=== PATIENT | female | born 2000 | race African-American/Black ===

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

== ENCOUNTER → 2022-01-18 10:32 | Outpatient (BNVA) | payer OTHER, SELFPAY | PROVIDERS: PCP Physician Assistant; Visit Provider Advanced Practice Midwife | DX: Z30.41 Encounter for surveillance of contraceptive pills (principal) | CPT/HCPCS: 99212 ==

== ENCOUNTER 2022-08-27 09:04 | Outpatient (REF) | payer OTHER, SELFPAY ==
[2022-08-27 16:40] LABS: CT PCR NOT DETECTED (Not Detect.); NG PCR NOT DETECTED (Not Detect.)
[2022-08-28 13:56] LABS: BV Int Neg Control Negative (Negative); BV Int Pos Control Positive (Positive)
== END 2022-08-27 09:05 | disposition home or self-care (01) ==
LOC: HO.LAB 09:04
PROVIDERS: PCP Physician Assistant; Visit Provider Advanced Practice Midwife
DX: O20.9 Hemorrhage in early pregnancy, unspecified (principal); O21.9 Vomiting of pregnancy, unspecified
CPT/HCPCS: 36415; 84702; 87480; 87491; 87510; 87591; 87660; 99212

== ENCOUNTER 2022-08-28 13:44 | Outpatient (REF) | payer OTHER, SELFPAY ==
--- NOTE | ~2022-08-28 | US_ITS ---
EXAMINATION: US OBSTETRICAL ULTRASOUND CLINICAL INFORMATION: O20.9 - Hemorrhage in early , unspecified COMPARISON: Pelvic ultrasound 11/19/2021. LMP: 07/15/2022. Gestational age by maternal dates is 6 weeks 2 days. Estimated date of delivery by maternal dates is 04/21/2023. TECHNIQUE: Ultrasound of the maternal pelvis is performed using transabdominal and transvaginal transducers. Transvaginal imaging is performed due to inadequate visualization transabdominally. M-mode Doppler is also performed. FINDINGS: There is a single intrauterine gestational sac with visible yolk sac, embryo/fetus, and cardiac activity. There is no significant subchorionic hemorrhage or hematoma. HR: 135 beats per minute. CRL (crown rump length): 0.92 cm (7 weeks 0 days +/- 4 days). CLAUDIA (estimated date of delivery): 04/16/2023 +/- 4 days. MATERNAL ADNEXA: The right maternal ovary measures 3.5 x 2.3 x 2.7 cm. The left maternal ovary measures 3.1 x 2.3 x 2.5 cm. There is no significant maternal adnexal mass. No maternal pelvic ascites. US/US OB <= 14 weeks fetus IMPRESSION: 1. Single intrauterine gestation with ultrasound gestational age of 7 weeks 0 days +/- 4 days. 2. Estimated date of delivery is 04/16/2023 +/- 4 days. 3. No subchorionic hemorrhage or hematoma.
== END 2022-08-28 13:45 | disposition home or self-care (01) ==
LOC: HO.US 13:44
PROVIDERS: PCP Physician Assistant; Visit Provider Advanced Practice Midwife
DX: O20.9 Hemorrhage in early pregnancy, unspecified (principal)
CPT/HCPCS: 76801

== ENCOUNTER → 2022-08-30 14:06 | Outpatient (BNVA) | payer OTHER, SELFPAY | PROVIDERS: PCP Physician Assistant; Visit Provider Advanced Practice Midwife | DX: Z71.2 Person consulting for explanation of examination or test findings (principal); O26.891 Other specified pregnancy related conditions, first trimester; N89.8 Other specified noninflammatory disorders of vagina; Z3A.01 Less than 8 weeks gestation of pregnancy | CPT/HCPCS: 99212 ==

== ENCOUNTER → 2022-09-13 13:53 | Outpatient (BNVA) | payer OTHER, SELFPAY | PROVIDERS: PCP Physician Assistant; Visit Provider Advanced Practice Midwife | DX: Z34.01 Encounter for supervision of normal first pregnancy, first trimester (principal); Z86.59 Personal history of other mental and behavioral disorders | CPT/HCPCS: 99212 ==

== ENCOUNTER → 2022-09-27 14:26 | Outpatient (BNVA) | payer OTHER, SELFPAY | PROVIDERS: PCP Physician Assistant; Visit Provider Advanced Practice Midwife | DX: O99.611 Diseases of the digestive system complicating pregnancy, first trimester (principal); K59.01 Slow transit constipation; O21.9 Vomiting of pregnancy, unspecified; Z3A.11 11 weeks gestation of pregnancy | CPT/HCPCS: 81003; 99212 ==

== ENCOUNTER 2022-09-30 08:14 | Outpatient (REF) | payer OTHER, SELFPAY ==
[2022-09-30 09:10] LABS: Hematocrit 37.7 % (37.0-47.0); Hemoglobin 12.6 g/dl (12.0-16.0); Mean Corpuscular HGB Conc 33.4 g/dl (31.0-35.0); Mean Corpuscular Volume 86.9 fL (80.0-98.0); Platelet Count 405 X10*3/uL (160-400); Red Blood Count 4.34 X10*6/uL (4.20-5.50); Red Cell Distribution Width 11.7 % (11.0-16.0); White Blood Count 4.7 X10*3/uL (4.8-10.8)
[2022-09-30 09:32] LABS: Amphetamine Screen Urine Not Detected (Not Detect); Barbiturates, Urine Not Detected (Not Detect); Benzodiazepines Screen Urine Not Detected (Not Detect); Cannabinoid Screen Urine Not Detected (Not Detect); Cocaine Screen Urine Not Detected (Not Detect); Fentanyl, urine Not Detected (Not Detect); Opiate Screen Urine Not Detected (Not Detect); Phencyclidine Screen Urine Not Detected (Not Detect)
[2022-10-02 04:42] LABS: Syphilis Screen Nonreactive (Nonreactive)
[2022-10-02 05:50] LABS: ~HepC Num1 0.07 S/CO (0.00-0.79); ~Hepatitis C Antibody Nonreactive (Nonreactive)
[2022-10-02 06:17] LABS: HBsAGNum1 0.29 S/CO (0.00-0.99); HIV AB/AG Nonreactive (Nonreactive); HIV Num 1 0.11 S/CO (0.00-0.99); Hepatitis B Surface Antigen Negative (Negative)
[2022-10-02 07:49] LABS: Varicella IgG Antibody <135.00 index
[2022-10-11 01:04] LABS: CF Ethnicity NG; Cystic Fibrosis NEGATIVE (NEGATIVE)
== END 2022-09-30 08:15 | disposition home or self-care (01) ==
LOC: HO.LAB 08:14
PROVIDERS: Visit Provider Advanced Practice Midwife
DX: Z32.01 Encounter for pregnancy test, result positive (principal)
CPT/HCPCS: 80307; 81220; 85027; 86762; 86780; 86787; 86803; 86850; 86900; 87086; 87340; 87389

== ENCOUNTER 2022-10-23 14:20 | Outpatient (REF) | payer OTHER, SELFPAY | END 2022-10-23 14:21 | disposition home or self-care (01) | LOC: HO.LAB 14:20 | PROVIDERS: PCP Physician Assistant; Visit Provider Advanced Practice Midwife | DX: Z34.02 Encounter for supervision of normal first pregnancy, second trimester (principal); Z3A.15 15 weeks gestation of pregnancy | CPT/HCPCS: 36415; 81003; 81511; 99212 ==

== ENCOUNTER → 2022-11-29 10:27 | Outpatient (BNVA) | payer OTHER, SELFPAY | PROVIDERS: PCP Physician Assistant; Visit Provider Advanced Practice Midwife | DX: O35.EXX0 Maternal care for other (suspected) fetal abnormality and damage, fetal genitourinary anomalies, not applicable or unspecified (principal); O98.512 Other viral diseases complicating pregnancy, second trimester; U07.1 COVID-19; Z3A.20 20 weeks gestation of pregnancy | CPT/HCPCS: 81003; 99212 ==

== ENCOUNTER 2023-09-12 09:29 | Outpatient (AMB) | payer OTHER, SELFPAY ==
[2023-09-12 10:03] VITALS: BP 136/88; PULSE 83; O2SAT 99; BMI 30.5
--- NOTE | 2023-09-12 10:03 | AM.OFFWIN_ITS ---
Intake Vital Signs 09/12/23 10:03 Height 5 ft 5 in Weight 183 lb 4 oz BMI 30.5 BP 136/88 Blood Pressure Location Rt brachial Position Sitting Pulse 83 Pulse Source Pulse Oximeter Pulse Oximetry (%) 99 Oxygen Delivery Method Room Air Intake Visit Reasons: EST/high bp, nausea(lobby) Patient Tobacco Use Status: Never used Tobacco Allergies No Known Allergies Allergy (Verified 09/12/23 10:06) Medication List - Last Reviewed 09/12/23 by Rosa Valdez MA PNV,calcium 03-btdc-dputu acid 27 mg iron- 1 mg ( Vitamins Plus Low Iron) 1 tab PO DAILY Do you need a note to return to daycare/school/sports/work: No HPI EST/high bp, nausea(lobby) HPI Details Patient is 22-year-old female came in today to talk about her blood pressure Patient delivered side of this year she had preeclampsia during and was treated with high blood pressure medication Which were eventually stopped when her blood pressure became normalized. Patient says that she has been monitoring her blood pressure every now and then and she has noticed that it was elevated again She also had nausea and chest pain along with headache yesterday so she went to [facility] Patient had chest x-ray which was normal EKG I do not have the report Labs were done I reviewed those they were within normal limit electrolytes were within normal limit kidney functions intact She came in today to be treated for high blood pressure as patient left AMA from [facility] yesterday Her blood pressure is 136/88, patient says that it is running as high as 150 systolic at home We did the EKG today as patient is still having some chest discomfort EKGs within normal limit I am treating her with atenolol 25 mg. She has appointment with [facility] with new PCP in December Patient will continue to monitor her blood pressure at home. [facility] Family History Paternal Aunt Ovarian cancer Brother High cholesterol Obesity Maternal Grandmother High cholesterol Paternal Grandfather No problems noted. 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 Current occupational exposures/hazards: No Sexual orientation: Straight/Heterosexual Gender identity: Female Cognitive needs: No Hearing needs: No Vision needs: No Female Reproductive History Menstrual Age of Menarche: 12 Review of Systems Const Denies chills and Denies fever(s) ENT Denies epistaxis and Denies nasal discharge Resp Denies chest congestion, Denies cough and Denies hemoptysis GI Denies diarrhea and Denies nausea Skin/Breast Denies rash Neuro Reports no additional complaints Psych Reports no additional complaints Endo Reports no additional complaints Physical Exam Vital Signs: Last Vital Signs Pulse 83 09/12/23 10:03 BP 136/88 09/12/23 10:03 Pulse Ox 99 09/12/23 10:03 Oxygen Delivery Method Room Air 09/12/23 10:03 BMI result Body Mass Index 30.5 Const General: cooperative, comfortable and no acute distress Orientation/consciousness: patient oriented x3 HEENT Head: Yes normocephalic Eyes General: appearance normal, both eyes and all related structures Neck Other: Supple Neck: Yes supple Resp Effort & Inspection: normal respiratory effort, no cough and no stridor Cardio Rhythm: regular rhythm Heart sounds: S1 normal heart sound present and S2 normal heart sound present Skin General skin exam: turgor normal Neuro Other: Motor sensory intact General: patient oriented x3, tone normal and moves all extremities Extrem Other: No lower extremity swelling. Right lower extremity: no edema Left lower extremity: no edema Psych Other: Normal effect, speech clear Office Procedures EKG [id number], Complete Assessment & Plan Assessment & Plan (1) Chest pain: Code(s): R07.9 - Chest pain, unspecified Qualifiers: Chest pain type: precordial pain Qualified Code(s): R07.2 - Precordial pain (2) Labile hypertension: Code(s): R09.89 - Other specified symptoms and signs involving the circulatory and respiratory systems Plan Patient is 22-year-old female came in today to talk about her blood pressure Patient delivered side of this year she had preeclampsia during and was treated with high blood pressure medication Which were eventually stopped when her blood pressure became normalized. Patient says that she has been monitoring her blood pressure every now and then and she has noticed that it was elevated again She also had nausea and chest pain along with headache yesterday so she went to [facility] Patient had chest x-ray which was normal EKG I do not have the report Labs were done I reviewed those they were within normal limit electrolytes were within normal limit kidney functions intact She came in today to be treated for high blood pressure as patient left AMA from [facility] yesterday Her blood pressure is 136/88, patient says that it is running as high as 150 systolic at home We did the EKG today as patient is still having some chest discomfort EKGs within normal limit I am treating her with atenolol 25 mg. She has appointment with [facility] care with new PCP in December Patient will continue to monitor her blood pressure at home. Orders: Orders AMB EKG-In Office Today R07.9 - Chest pain, unspecified Medications: New atenolol 25 mg PO DAILY 90 tabs 0RF Coding Level of Care Code Est Pt Level 4 (23096) Diagnoses Precordial pain R07.2 Chest pain type: precordial pain Labile hypertension R09.89 CPT Codes EKG - CPT: 80170-[id number], Complete ([id number])
== END 2023-09-12 10:57 | disposition home or self-care (01) ==
PROVIDERS: PCP Internal Medicine; Visit Provider Internal Medicine
DX: R07.2 Precordial pain (principal); R09.89 Other specified symptoms and signs involving the circulatory and respiratory systems
CPT/HCPCS: 93000; 99214

== ENCOUNTER 2023-12-11 08:56 | Outpatient (AMB) | payer OTHER, SELFPAY ==
[2023-12-11 09:50] VITALS: BP 122/76; PULSE 76; O2SAT 98; BMI 30.5
--- NOTE | 2023-12-11 09:50 | MHC.OFFWIV ---
Intake Vital Signs 12/11/23 09:50 Height 5 ft 5 in Weight 183 lb 4 oz BMI 30.5 BP 122/76 Blood Pressure Location Rt brachial Position Sitting Pulse 76 Pulse Source Pulse Oximeter Pulse Oximetry (%) 98 Oxygen Delivery Method Room Air Intake Visit Reasons: EST/sore throat ([phone]) Intake Note: pt is here for c.o sore throat Patient Tobacco Use Status: Never used Tobacco Allergies No Known Allergies Allergy (Verified 12/11/23 09:50) Do you need a note to return to daycare/school/sports/work: Yes HPI EST/sore throat ([phone]) HPI Details This is a 23-year-old female patient who presents today with a 2 day history of sore throat and mild headache. She also reports some mild ear pressure. Denies any fever or chills. Denies any shortness of breath or cough. Denies any GI symptoms. Denies any known exposure to sick contacts. [facility] Family History Paternal Aunt Ovarian cancer Brother High cholesterol Obesity Maternal Grandmother High cholesterol Paternal Grandfather No problems noted. 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 Current occupational exposures/hazards: No Sexual orientation: Straight/Heterosexual Gender identity: Female Cognitive needs: No Hearing needs: No Vision needs: No Female Reproductive History Menstrual Age of Menarche: 12 Review of Systems Const All systems reviewed & are unremarkable except as noted in HPI and below Physical Exam Vital Signs: Last Vital Signs Pulse 76 12/11/23 09:50 BP 122/76 12/11/23 09:50 Pulse Ox 98 12/11/23 09:50 Oxygen Delivery Method Room Air 12/11/23 09:50 BMI result Body Mass Index 30.5 Const General: cooperative and no acute distress HEENT Head: Yes normal to inspection Ears: hearing grossly normal bilaterally, external ears normal and TM's normal bilaterally General nose exam: Normal external nose present and Normal nasal mucous membranes and turbinates present Face and sinus: Yes normal facial exam Mouth: Normal oral and palatal mucosa present Throat: Yes posterior oropharynx normal Neck Neck: Yes no lymphadenopathy Resp Effort & Inspection: normal respiratory effort and able to speak in complete sentences Auscultation: clear to auscultation bilaterally Cardio Jugular venous distension: no JVD Palpation: normal PMI Rate: regular rate Rhythm: regular rhythm Skin General skin exam: no rashes or lesions noted Extrem General: Yes capillary refill normal and Yes no clubbing, cyanosis or edema Psych Appearance: grossly normal Mental Status: mental status grossly normal Speech and movement: Normal speech and movement present Results AMB Rapid Strep AMB Rapid Strep Negative Last Edit by VAISHNAVI Acuña on 12/11/23 10:03 Results Reviewed Results Reviewed: Laboratory Last Values Strep Scn Rapid Clinic Negative 12/11/23 10:03 Assessment & Plan Assessment & Plan (1) Upper respiratory infection: Code(s): J06.9 - Acute upper respiratory infection, unspecified Qualifiers: URI type: unspecified viral URI Qualified Code(s): J06.9 - Acute upper respiratory infection, unspecified Plan: Symptoms are consistent with viral illness. Rapid strep was negative. No abnormal symptoms upon exam. COVID/flu/RSV swab was obtained and patient aware she will be notified with these results once they are available. We discussed conservative measures for symptomatic management, including rest, hydration, increase vitamin and healthy food intake, Tylenol/Motrin for any fever or discomfort. If she does not improve with time and conservative treatment, or symptoms worsen/new symptoms develop, she can return to the clinic for further evaluation. She verbalizes understanding and agrees to plan Orders: Orders AMB Rapid Strep Screen Today Z13.9 - Encounter for screening, unspecified SARS-CoV2/FLU/RSV Today J06.9 - Acute upper respiratory infection, unspecified Coding Level of Care Code Est Pt Level 3 (09174) Diagnoses Viral upper respiratory tract infection J06.9 URI type: unspecified viral URI
== END 2023-12-11 10:37 | disposition home or self-care (01) ==
PROVIDERS: PCP Internal Medicine; Visit Provider Nurse Practitioner Family
DX: J06.9 Acute upper respiratory infection, unspecified (principal); J02.9 Acute pharyngitis, unspecified
CPT/HCPCS: 87880; 99213

== ENCOUNTER 2023-12-11 10:24 | Outpatient (REF) | payer OTHER, SELFPAY ==
[2023-12-11 16:58] LABS: Influenza A PCR NEGATIVE (Negative); Influenza B PCR NEGATIVE (Negative); Resp Syncy Virus RNA Qual PCR NEGATIVE (Negative); SARS COV2 PCR INHOUSE NEGATIVE (Negative)
== END 2023-12-11 10:25 | disposition home or self-care (01) ==
LOC: HO.LAB 10:24
PROVIDERS: Visit Provider Nurse Practitioner Family
DX: J06.9 Acute upper respiratory infection, unspecified (principal)
CPT/HCPCS: 0241U

== ENCOUNTER 2024-01-07 09:57 | Outpatient (AMB) | payer OTHER, SELFPAY ==
[2024-01-07 10:42] VITALS: BP 110/68; PULSE 71; O2SAT 100; BMI 29.8
--- NOTE | 2024-01-07 10:42 | A.OFFPC_ITS ---
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 Intake Note: Pt is here today as a New Patient to [facility] care/ PE Is last menstrual period known: Yes Last menstrual period: 12/23/23 Allergies No Known Allergies Allergy (Verified 01/07/24 10:57) Medication List - Last Reconciled 01/07/24 by Tiff Shah MD atenolol 25 mg PO DAILY levonorgestrel (Liletta) intrauterine PNV,calcium [id number] acid 27 mg iron- 1 mg ( Vitamins Plus Low Iron) 1 tab PO DAILY Tobacco use date assessed: 01/07/24 Dental Screening Dental Screen Date: 01/07/24 Did you have a dental visit in the last 12 months?: Yes Did you have a dental problem in the last 6 months where you did not have access to dental care?: Yes Was dental information given to patient?: Patient has dentist 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 She has history of preeclampsia during her 1st , now with hypertension, stable and controlled on atenolol 25 mg once a day. Still currently follows with [facility], and had an IUD placed last March 2023. She had recent labs done at her OB with his CBC done 09/11/2023 showing normal findings, basic metabolic panel showed also unremarkable findings except for slightly elevated fasting glucose at 103 mg/dL. She also had a normal EKG done 09/11/2023 at [facility] . She has been complaining of intermittent episodes of lower abdominal pain, with certain foods upsetting her stomach pelvic ultrasound was ordered by her OB and was done 10/30/2023 which showed normal position of her IUD, normal uterus and ovaries and small amount of free fluid in her pelvis, likely physiologic. Still complaining of intermittent epigastric pain accompanied by occasional nausea but no vomiting, abdominal bloating, and constipation. This has been on going now for the last several months. [facility] Medical History (Updated 01/07/24 @ 11:27 by Tiff Shah MD) Chronic constipation Essential hypertension History of pre-eclampsia Surgical History (Updated 01/07/24 @ 11:23 by Tiff Shah MD) Hx of wisdom tooth extraction Family History (Updated 01/07/24 @ 11:22 by Tiff Shah MD) Paternal Aunt Ovarian cancer Substance use disorder Mental health disorder Diabetes mellitus Brother High cholesterol Obesity Maternal Grandmother High cholesterol HTN (hypertension) Paternal Grandfather CVA (cerebral vascular accident) Mother Asthma Social History Household Members: Family Housing: Apartment Are you a primary pharmacy customer care specialist to a significant other at home: No Do you presently have visiting nurse or other home services: No Alcohol intake: never Patient Tobacco Use Status: Never used Tobacco e-Cigarette/Vaping Use: Never Used Substance Use Type: Marijuana Agree to transfusion: Yes service: No Current occupational status: employed 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 1. Little interest or pleasure in doing things: not at all 2. Feeling down, depressed, or hopeless: not at all 3. Trouble falling or staying asleep, or sleeping too much: several days 4. Feeling tired or having little energy: more than half the days 5. Poor appetite or overeating: not at all 6. Feeling bad about yourself - or that you are a failure or have let yourself or your family down: not at all 7. Trouble concentrating on things, such as reading the newspaper or watching television: several days 8. Moving or speaking so slowly that other people could have noticed. Or the opposite - being so fidgety or restless that you have been moving around a lot more than usual: several days 9. Thoughts that you would be better off or of hurting yourself in some way: not at all Total score: 5 Depression Screening Interpretation: Negative Depression Screening Done: Yes 09156 - PHQ-9 Billing: Yes Source: Developed by Drs. Ulysses Torres, Breanna Connors, Suresh Maurice and colleagues, with an educational francisca from [employer]. Thrive Questionnaire Date Thrive assessed: 01/07/24 I am a: Patient What is your living situation today?: I have a steady place to live Within the past 12 months, did the food you bought not last and you didn't have the money to get more?: Never true Within the past 12 months, did you worry whether your food would run out before you got money to buy more?: Never true Do you have trouble paying for medicines?: No Do you have trouble getting transportation to medical appointments?: No Do you have trouble paying your heating and electricity bill?: No Do you have trouble taking care of your child, family member or friend?: No Do you have trouble with day-to-day activities such as bathing, preparing meals, shopping, managing finances, etc.?: No Are you currently unemployed and looking for a job?: No Are you interested in more education?: No THRIVE Score: 0 AUDIT C Alcohol Use Questionnaire (AUDIT-C) 1. How often do you have a drink containing alcohol?: Never Total Score: 0 AMEYA-7 AMB Questionnaire AMEYA-7 Date AMEYA - 7 assessed: 01/07/24 Feeling nervous, anxious, or on edge: 1 = Several days Not being able to stop or control worryin = Several days Worrying too much about different things: 0 = Not at all Trouble relaxin = Not at all Being so restless that it is hard to sit still: 0 = Not at all Becoming easily annoyed or irritable: 1 = Several days Feeling afraid as if something awful might happen: 0 = Not at all Total AMEYA-7 score (0-4 normal; 5-9 mild; 10-14 moderate; 15-21 severe): 3 Source: Developed by Drs. Ulysses Torres, Suresh Kumari and colleagues, with an educational francisca from [employer]. AMEYA-7 Assessment Billing AMEYA-7 Assessment Tool: AMEYA-7 Assessment 32851 Review of Systems Const Denies body aches, Reports difficulty sleeping (Has a 9-month-old child, which she breast feeds, has interrupted sleep), Denies fatigue and Denies malaise Eyes Reports blurry vision (Myopia, goes to [facility]) ENT Reports no additional complaints Card Reports no additional complaints Resp Reports no additional complaints GI Reports as per HPI Reports no additional complaints Musc Reports no additional complaints Skin/Breast Details: Actively breast-feeding Denies breast pain, Denies breast mass and Denies rash Neuro Reports no additional complaints Psych Reports no additional complaints Endo Reports no additional complaints and Denies fatigue Justin/Lymph Reports no additional complaints Aller/Immun Reports no additional complaints Physical exam (Primary Care) Vital Signs: Last Vital Signs Pulse 71 01/07/24 10:42 BP 110/68 01/07/24 10:42 Pulse Ox 100 01/07/24 10:42 Oxygen Delivery Method Room Air 01/07/24 10:42 BMI result Body Mass Index 29.8 Tobacco/Smoking Status: Tobacco use Status Tobacco use date assessed 01/07/24 01/07/24 10:48 Patient Tobacco Use Status Never used Tobacco 01/07/24 10:44 e-Cigarette/Vaping Use Never Used 01/07/24 10:48 PHQ-9: PHQ-9 Score PHQ-9: Total score 5 01/07/24 23:49 Depression Screening Interpretation: Negative Thrive Assessment: Date of Thrive Assessment Date Thrive assessed 01/07/24 01/07/24 10:55 Const General: no acute distress and alert Orientation/consciousness: patient oriented x3 HENMT Head: Yes normocephalic and Yes atraumatic Ears: external ears normal, TM's normal bilaterally and EAC's normal General nose exam: Normal external nose present and No nasal discharge present Face and sinus: Yes face symmetric Mouth: Normal oral and palatal mucosa present, tongue normal, oropharynx normal and moist mucous membranes Eyes General: appearance normal, both eyes and all related structures Eyelids: Yes eyelids normal Conjunctivae: conjunctivae normal Sclerae: sclerae normal Pupils: Equal, round and reactive pupils present EOM: EOMs intact bilaterally Neck Neck: Yes full ROM, Yes no lymphadenopathy and Yes supple Thyroid: Thyroid normal Chest Chest palpation & inspection: normal inspection of the chest and normal palpation of entire chest wall Breast/axilla palpation: normal palpation of the breasts Resp Effort & Inspection: normal respiratory effort and able to speak in complete sentences Auscultation: clear to auscultation bilaterally Cardio Rate: regular rate Rhythm: regular rhythm Heart sounds: S1 normal heart sound present and S2 normal heart sound present GI Palpation (GI): Soft to palpation, nontender, no guarding and no masses Auscultation: normal bowel sounds Other: Goes to with [facility] for her routine Pap and pelvic exam and IUD maintenance General: Yes no CVA tenderness Back/Spine/Pelvis Back: no CVA tenderness and No back tenderness Skin General skin exam: no rashes or lesions noted Neuro General: patient oriented x3, gait normal, moves all extremities, Normal light touch and pain sensation, no focal motor deficits and CN's II-XI intact bilaterally Cranial nerves: Yes Equal, round and reactive pupils present Cognition (Neuro): normal cognition Gait exam (Neuro): Normal gait present Motor exam (neuro): 5/5 motor strength present throughout Extrem General: Yes normal to inspection, Yes full ROM, Yes no joint enlargement, Yes no pedal edema and Yes normal gait Psych Appearance: grossly normal and well kempt Mental Status: mental status grossly normal Speech and movement: Normal speech and movement present Affect: normal affect Attitude: cooperative Thought process: Normal thought process present Thought content: Normal thought content present Assessment and Plan Assessment & Plan (1) Annual visit for general adult medical examination with abnormal findings: Code(s): Z00.01 - Encounter for general adult medical examination with abnormal findings Plan: Will check appropriate labs. Recommended dental visit every 6 months and regular eye exams, at least every 2 years. Take adequate calcium in diet and vitamin-D 3 at 2000 IU per cap once a day, in addition to weight-bearing exercises to help maintain good muscle tone and weight control. Instructed to do self-breast exam, and recommended to get yearly mammogram, starting at age 40. Goes to [facility] for her routine Pap and pelvic exam, had IUD placed March 2023. Reminded to get her yearly flu shot, has had COVID vaccines in the past but does not want to get the booster, up-to-date with her Tdap. (2) Essential hypertension: Code(s): I10 - Essential (primary) hypertension Plan: Blood pressure at goal of less than 130/80. Continue with attending 25 mg once a day Reinforced importance of following a low sodium diet, getting regular exercise, and lowering stress levels. (3) Intermittent epigastric abdominal pain: Code(s): R10.13 - Epigastric pain Plan: Upper GI series ordered, Symptoms with intermittent abdominal pain, accompanied by bloating and constipation likely IBS. Will do a trial of tricyclic 20 mg per tablet to take 1 tablet 3 times a day before meals. Increase water intake, and get regular exercise. Gastroenterology consult obtain (4) Chronic constipation: Code(s): K59.09 - Other constipation Plan: Symptoms with intermittent abdominal pain, accompanied by bloating and constipation likely IBS. Will do a trial of tricyclic 20 mg per tablet to take 1 tablet 3 times a day before meals. Increase water intake, and get regular exercise. Gastroenterology consult obtain Orders: Orders Comprehensive [facility]. Panel Fast 01/07/24 I10 - Essential (primary) hypertension, K59.01 - Slow transit constipation, R10.13 - Epigastric pain, R11.2 - Nausea with vomiting, unspecified Vitamin D 25-OH Total 01/07/24 I10 - Essential (primary) hypertension, K59.01 - Slow transit constipation, R10.13 - Epigastric pain, R11.2 - Nausea with vomiting, unspecified FL upper GI series 01/07/24 R10.13 - Epigastric pain, R11.2 - Nausea with vomiting, unspecified Complete Blood Count Auto Diff 01/07/24 I10 - Essential (primary) hypertension, K59.01 - Slow transit constipation, R10.13 - Epigastric pain, R11.2 - Nausea with vomiting, unspecified Lipid Panel 01/07/24 I10 - Essential (primary) hypertension, K59.01 - Slow transit constipation, R10.13 - Epigastric pain, R11.2 - Nausea with vomiting, unspecified TSH reflex Free T4 01/07/24 I10 - Essential (primary) hypertension, K59.01 - Slow transit constipation, R10.13 - Epigastric pain, R11.2 - Nausea with vomiting, unspecified Referrals Gastroenterology Referral K59.09 - Other constipation Medications: New dicyclomine Take medication 15 minutes before eating 20 mg PO TID 90 tabs 0RF Coding Level of Care Code New Pt Prev Care 18-39yr([id number] Diagnoses Annual visit for general adult medical examination with abnormal findings Z00.01 Essential hypertension I10 Intermittent epigastric abdominal pain R10.13 Chronic constipation K59.09 Additional Codes AMEYA-7 Assessment Billing - AMEYA-7 Assessment Tool: AMEYA-7 Assessment 36178 ([id number])
== END 2024-01-07 11:58 | disposition home or self-care (01) ==
PROVIDERS: PCP Internal Medicine; Visit Provider Internal Medicine
DX: Z00.01 Encounter for general adult medical examination with abnormal findings (principal); I10 Essential (primary) hypertension; R10.13 Epigastric pain; K59.09 Other constipation
CPT/HCPCS: 99213; 99385

== ENCOUNTER 2024-01-07 11:27 | Outpatient (REF) | payer OTHER, SELFPAY ==
[2024-01-07 13:34] LABS: MANUAL DIFF FLAG NO
[2024-01-07 13:50] LABS: Basophils Percent Auto 0.8 % (0-2); Eosinophils Absolute Auto 0.1 X10*3/uL (0.0-0.4); Eosinophils Percent Auto 2.4 % (0-4); Hemoglobin 13.4 g/dl (12.0-16.0); Imm Gran Abs Auto 0.01 X10*3/uL (0.00-0.03); Imm Gran Pct Auto 0.3 % (0.0-0.4); Lymphocytes Absolute Auto 2.1 X10*3/uL (1.2-4.9); Lymphocytes Percent Auto 55.8 % (20-40); Mean Corpuscular HGB Conc 33.5 g/dl (31.0-35.0); Mean Corpuscular Hemoglobin 29.9 pg (27.0-33.0); Mean Corpuscular Volume 89.3 fL (80.0-98.0); Mean Platelet Volume 10.2 fL (9.4-12.3); Monocytes Absolute Auto 0.4 X10*3/uL (0.1-1.2); Monocytes Percent Auto 10.8 % (2-11); Neutrophils Absolute Auto 1.1 x10*3/uL (2.0-8.3); Neutrophils Percent Auto 29.9 % (45-73); Platelet Count 407 X10*3/uL (160-400); Red Blood Count 4.48 X10*6/uL (4.20-5.50); Red Cell Distribution Width 11.4 % (11.0-16.0); White Blood Count 3.7 X10*3/uL (4.8-10.8)
[2024-01-07 14:16] LABS: Alanine Aminotransferase 15 U/L (0-31); Albumin Level 4.3 g/dL (3.5-5.0); Alkaline Phosphatase 77 U/L (39-117); Anion Gap 10 (12-20); Aspartate Amino Transferase 15 U/L (5-31); Bilirubin Total 1.3 mg/dL (0.0-1.0); Blood Urea Nitrogen 9 mg/dL (9-16); Calcium 9.7 mg/dL (8.4-10.2); Carbon Dioxide 28 mmol/L (22-29); Chloride 107 mmol/L (96-108); Cholesterol 196 mg/dL (<200); Estimated Glomerular Filt Rate > 60; Glucose Fasting 89 mg/dL (60-99); HDL Cholesterol 48 mg/dL (>40); LDL Cholesterol Calculated 130 mg/dL (<100); Potassium 4.5 mmol/L (3.3-5.1); Sodium 140 mmol/L (135-145); Total Protein 7.3 g/dL (6.5-8.0); Triglycerides 90 mg/dL (<150)
[2024-01-07 14:19] LABS: Vitamin D 25-OH Total 22.8 ng/mL (>30)
== END 2024-01-07 11:28 | disposition home or self-care (01) ==
LOC: HO.HMGCLDS 11:27
PROVIDERS: PCP Internal Medicine; Visit Provider Internal Medicine
DX: I10 Essential (primary) hypertension (principal); K59.01 Slow transit constipation; R11.2 Nausea with vomiting, unspecified; R10.13 Epigastric pain
CPT/HCPCS: 36415; 80053; 80061; 82306; 84443; 85025

== ENCOUNTER 2024-03-09 07:58 | Outpatient (REF) | payer OTHER, SELFPAY ==
--- NOTE | ~2024-03-09 | FL_ITS ---
EXAMINATION: XR FLUOROSCOPY UPPER GI WITH AIR CLINICAL INFORMATION: Nausea and vomiting COMPARISON: None TECHNIQUE: Fluoroscopic air contrast upper GI examination was performed utilizing standard techniques with thin and thick barium and effervescent granules. Numerous spot images were obtained. FINDINGS: Lateral cine images of the oropharynx and hypopharynx demonstrate normal swallow mechanism with normal epiglottic inversion and soft palate elevation. No tracheal penetration, glottic or subglottic aspiration identified. No nasopharyngeal reflux present. Hypopharyngeal structures appear normal without evidence of mass or diverticulum. There was no significant cricopharyngeal achalasia. Dual and single contrast images of the esophagus demonstrate normal caliber, contour, and mucosal pattern. No evidence of stricture, mass, or ulcerations identified. Esophageal peristalsis was normal. Small type I hiatal hernia is present. Severe gastroesophageal reflux is seen up to the thoracic inlet. Dual contrast and single contrast images of the stomach demonstrate a normal contour. The gastric rugal folds have a thickened appearance. There are multiple small foci of contrast pooling in the body the stomach that may represent small superficial aphthous ulcers. No masses are seen. Contrast freely passed into the gastric antrum and duodenal bulb without delay. Single and air-contrast images of the duodenal bulb demonstrate no abnormality. The duodenal sweep has a normal appearance, course, and mucosal fold appearance. No malrotation. The imaged proximal jejunum has a normal fold pattern and caliber. FLUOROSCOPY TIME: 3 minutes 20 seconds Number of Spot Images: 12 Number of Cine: 11 DOSE AREA PRODUCT: 2212 uGy-m2 (microgray-meter squared) FL/FL upper GI series IMPRESSION: 1. Small type I hiatal hernia 2. Severe gastroesophageal reflux 3. Thickened gastric rugal folds. In addition there are multiple small foci of contrast pooling in the body the stomach. These findings are suggestive of erosive gastritis. Recommend correlation with EGD. This procedure was performed by Gee Arciniega PA-C, and supervised by Dr. Mckeon
== END 2024-03-09 07:59 | disposition home or self-care (01) ==
LOC: HO.XRAY 07:58
PROVIDERS: PCP Internal Medicine; Visit Provider Internal Medicine
DX: R10.13 Epigastric pain (principal); R11.2 Nausea with vomiting, unspecified
CPT/HCPCS: 74240

== ENCOUNTER → 2024-03-09 07:59 | Outpatient (BNV) | payer OTHER, SELFPAY | PROVIDERS: PCP Internal Medicine; Visit Provider Physician Assistant Surgical | DX: R11.2 Nausea with vomiting, unspecified (principal) | CPT/HCPCS: 74246 ==

== ENCOUNTER 2024-03-23 13:14 | Outpatient (AMB) | payer OTHER, SELFPAY ==
--- NOTE | 2024-03-23 13:16 | A.OFFVIS_ITS ---
Vital Signs 03/23/24 13:20 Height 5 ft 4 in Weight 171 lb 15.369 oz BMI 29.5 BP 127/75 Blood Pressure Location Lt brachial Position Sitting Pulse 80 Intake Visit Reasons: Constipation - GI series on 03/09 Intake Note: Fletcher presents in the office as a new patient for constipation. CC: She states that she is having constipation and has dealt with it her entire life. She denies any blood when she has a BM. Always very hard stools - never loose stools. Allergies No Known Allergies Allergy (Verified 03/23/24 13:20) HPI HPI Constipation - GI series on 03/09: Details: 23-year-old female with past medical history of depression, hypertension, constipation is here today for initial consultation. Patient was referred to us after going for barium swallow which came back positive for significant acid reflux and possible gastritis/gastric ulcer. Patient reports postprandial epigastric pain. Patient is unable to take anything as she still is breast- feeding her 8-month-old daughter. Patient states that she tries to stay away from food that can be aggravating. Is not eating anything spicy. Patient avoids eating late at night. Patient admits to being constipated. History of constipation for very long time even before her . Patient denies any nausea or vomiting. Occasional dyspepsia with dysphagia without odynophagia. Feels like food specially like rice gets very sticky when it goes down. Patient reports that she is drinking fluids. Denies any nausea or vomiting. Denies melena, hematochezia. Denies any other GI concerning symptoms. [facility] Medical History Vitamin D deficiency Chronic constipation Essential hypertension History of pre-eclampsia Surgical History Hx of wisdom tooth extraction Family History Paternal Aunt Ovarian cancer Substance use disorder Mental health disorder Diabetes mellitus Brother High cholesterol Obesity Maternal Grandmother High cholesterol HTN (hypertension) Paternal Grandfather CVA (cerebral vascular accident) Mother Asthma Social History Household Members: Family Both parents involved: Yes Caregiver staying overnight: No Housing: Apartment Are you a primary career development engineer to a significant other at home: No Do you presently have visiting nurse or other home services: No 75 years or older and lives alone: No Alcohol intake: never Patient Tobacco Use Status: Never used Tobacco e-Cigarette/Vaping Use: Never Used Substance Use Type: Marijuana Agree to transfusion: Yes service: No Current occupational status: employed 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 Current occupational exposures/hazards: No Sexual orientation: Straight/Heterosexual Gender identity: Female Cognitive needs: No Hearing needs: No Vision needs: Yes Female Reproductive History Menstrual Age of Menarche: 12 Review of Systems Const Denies weight gain and Denies weight loss ENT Reports no additional complaints, Denies dysphagia and Denies odynophagia Card Reports no additional complaints Resp Reports no additional complaints GI Denies abdominal pain, Denies belching, Denies melena, Reports bloating, Reports constipation, Denies dysphagia, Denies excessive flatus, Denies dyspepsia, Reports heartburn, Denies diarrhea, Denies loose stools, Denies nausea, Denies odynophagia and Denies vomiting Reports no additional complaints Musc Reports no additional complaints Neuro Reports no additional complaints Psych Reports no additional complaints Endo Reports no additional complaints Physical Exam Vital Signs: Last Vital Signs Pulse 80 03/23/24 13:20 BP 127/75 03/23/24 13:20 BMI result Body Mass Index 29.5 Const General: healthy appearing, no acute distress and well developed Nutritional Appearance: well nourished Orientation/consciousness: patient oriented x3 Resp Effort & Inspection: normal respiratory effort, able to speak in complete sentences, no tracheal deviation and symmetric chest movement Auscultation: clear to auscultation bilaterally Cardio Rate: regular rate GI Inspection: Yes normal to inspection and No distended Palpation (GI): Soft to palpation, not firm, nontender and No hepatosplenomegaly present Auscultation: normal bowel sounds General: Yes no CVA tenderness Back/Spine/Pelvis Back: no CVA tenderness Skin General skin exam: elasticity normal, turgor normal and dry skin Neuro General: patient oriented x3 Psych Appearance: grossly normal Mental Status: mental status grossly normal Results Reviewed Results Reviewed: UPPER GI SERIES IMPRESSION: 1. Small type I hiatal hernia 2. Severe gastroesophageal reflux 3. Thickened gastric rugal folds. In addition there are multiple small foci of contrast pooling in the body the stomach. These findings are suggestive of erosive gastritis. Recommend correlation with EGD. Assessment & Plan Assessment & Plan (1) Chronic constipation: Code(s): K59.09 - Other constipation Category: Medical (2) GERD (gastroesophageal reflux disease): Code(s): K21.9 - Gastro-esophageal reflux disease without esophagitis Qualifiers: Esophagitis presence: esophagitis presence not specified Qualified Code(s): K21.9 - Gastro-esophageal reflux disease without esophagitis (3) Postprandial epigastric pain: Code(s): R10.13 - Epigastric pain Plan Will check lipase, transglutaminase, bilirubin direct and total as history of hyperbilirubinemia. Will check vitamin B12, folate and vitamin-D level. Patient will start taking famotidine daily, however may take at bedtime 2nd dose as needed. Avoid dietary triggers and late night snacking. Patient will try to see if she can wean her daughter of breast-feeding as she mainly breast feeds during the night for comfort. Patient will start taking senna daily. Patient was encouraged to increase fluid intake and activity to promote better bowel motility. I will see her in months, sooner on as needed basis. We will discuss patient going for endoscopy if her symptoms will persist. She is agreeable to this plan and verbalizes understanding of instructions. She was given the opportunity to ask questions and all questions answered. Thank you for allowing me to participate in her care Orders: Orders Transglutaminase IgA 03/23/24 R10.9 - Unspecified abdominal pain Lipase 03/23/24 R10.9 - Unspecified abdominal pain Bilirubin Direct 03/23/24 R17 - Unspecified jaundice Vitamin B12 and Folate 03/23/24 R19.7 - Diarrhea, unspecified Transglutaminase Ab IgG 03/23/24 R10.9 - Unspecified abdominal pain Bilirubin Total 03/23/24 R10.9 - Unspecified abdominal pain Vitamin D 25-OH (D2 and D3) 03/23/24 E55.9 - Vitamin D deficiency, unspecified Medications: New famotidine 20 mg PO BID 30 tabs 3RF K29.70 - Gastritis, unspecified, without bleeding sennosides (Natural Senna Laxative) 17.2 mg (2 x 8.6 mg) PO BEDTIME 60 tabs 3RF constipation K59.00 - Constipation, unspecified Coding Level of Care Code New Pt Level 4 (01494) Diagnoses Chronic constipation K59.09 Gastroesophageal reflux disease, unspecified whether esophagitis present K21.9 Esophagitis presence: esophagitis presence not specified Postprandial epigastric pain R10.13 Time Spent (min) 45 Comment 30 minutes spent with patient additional 15 minutes spent reviewing her records
[2024-03-23 13:20] VITALS: BP 127/75; PULSE 80; BMI 29.5
== END 2024-03-23 13:51 | disposition home or self-care (01) ==
PROVIDERS: PCP Internal Medicine; Referring Provider Internal Medicine; Visit Provider Nurse Practitioner Family
DX: K59.09 Other constipation (principal); K21.9 Gastro-esophageal reflux disease without esophagitis; R10.13 Epigastric pain
CPT/HCPCS: 99204

== ENCOUNTER → 2024-03-23 13:14 | Outpatient (BNVA) | payer OTHER, SELFPAY | PROVIDERS: PCP Internal Medicine; Referring Provider Internal Medicine; Visit Provider Nurse Practitioner Family | DX: K59.09 Other constipation (principal); K21.9 Gastro-esophageal reflux disease without esophagitis; R10.13 Epigastric pain | CPT/HCPCS: 99202 ==

== ENCOUNTER 2024-04-01 10:20 | Outpatient (REF) | payer OTHER, SELFPAY ==
[2024-04-01 11:44] LABS: Bilirubin Direct 0.5 mg/dL (0.0-0.5); Bilirubin Total 1.9 mg/dL (0.0-1.0); Lipase 29 U/L (8-78)
[2024-04-01 12:14] LABS: Folate 11.1 ng/mL (> or = 4.0); Vitamin B12 495 pg/mL (200-900)
[2024-04-02 20:34] LABS: Transglutaminase Ab IgG <1.0 U/mL; Transglutaminase IgA <1.0 U/mL
[2024-04-05 19:52] LABS: Vitamin D 25-OH, D2 <4 ng/mL; Vitamin D 25-OH, D3 65 ng/mL; Vitamin D 25-OH, Total 65 ng/mL (30-100)
== END 2024-04-01 10:21 | disposition home or self-care (01) ==
LOC: HO.LAB 10:20
PROVIDERS: PCP Internal Medicine; Visit Provider Nurse Practitioner Family
DX: R10.9 Unspecified abdominal pain (principal); E55.9 Vitamin D deficiency, unspecified; R19.7 Diarrhea, unspecified; R17 Unspecified jaundice
CPT/HCPCS: 36415; 82247; 82248; 82306; 82607; 82746; 83690; 86364

== ENCOUNTER 2024-09-06 11:39 | Outpatient (AMB) | payer OTHER, SELFPAY ==
[2024-09-06 11:41] VITALS: BP 118/74; PULSE 62; O2SAT 98; BMI 25.2
--- NOTE | 2024-09-06 11:41 | A.OFFVIS_ITS ---
Vital Signs 09/06/24 11:41 Height 5 ft 5 in Weight 151 lb 10.848 oz BMI 25.2 BP 118/74 Blood Pressure Location Lt brachial Position Sitting Pulse 62 Pulse Source Pulse Oximeter Pulse Oximetry (%) 98 Oxygen Delivery Method Room Air Intake Visit Reasons: pt r/s from 05/28 Intake Note: PRESCRIPTIONS LAST GENERATED sennosides 8.6 mg tablet?(Natural Senna Laxative)?17.2 mg (2 x 8.6 mg) PO BEDTIME 60 tabs 3RF Anitra Rosas D 03/23/24 13:42 (Transmitted) Pt is not taking this medication anymore. Relevant Flags or Indicators ? Requires Packing Checker? Andrzej Bynum presents in office today for a scheduled 6 mos FUV. CC; Pt has had labs drawn and meds as per above, since last visit. ? Relevant GI Sx as reported per pt? Nausea ? Reflux o?? Constipation ? Abdominal Pain o?? Lower B/L ? Hx of any recent surgeries? None Packing Checker Required: No Accompanied by: Family/Other Allergies No Known Allergies Allergy (Verified 09/06/24 11:46) HPI HPI pt r/s from 05/28: Details: LAST VISIT Chronic constipation GERD (gastroesophageal reflux disease) Postprandial epigastric pain Plan Will check lipase, transglutaminase, bilirubin direct and total as history of hyperbilirubinemia. Will check vitamin B12, folate and vitamin-D level. Patient will start taking famotidine daily, however may take at bedtime 2nd dose as needed. Avoid dietary triggers and late night snacking. Patient will try to see if she can wean her daughter of breast-feeding as she mainly breast feeds during the night for comfort. Patient will start taking senna daily. Patient was encouraged to increase fluid intake and activity to promote better bowel motility. I will see her in months, sooner on as needed basis. We will discuss patient going for endoscopy if her symptoms will persist. She is agreeable to this plan and verbalizes understanding of instructions. She was given the opportunity to ask questions and all questions answered. ? Thank you for allowing me to participate in her care Orders Orders Transglutaminase IgA 03/23/24 R10.9 Lipase 03/23/24 R10.9 Bilirubin Direct 03/23/24 R17 Vitamin B12 and Folate 03/23/24 R19.7 Transglutaminase Ab IgG 03/23/24 R10.9 Bilirubin Total 03/23/24 R10.9 Vitamin D 25-OH (D2 and D3) 03/23/24 E55.9 Medications New famotidine 20 mg PO BID 30 tabs 3RF K29.70 sennosides (Natural Senna Laxative) 17.2 mg (2 x 8.6 mg) PO BEDTIME 60 tabs 3RF constipation K59.00 TODAY'S VISIT Patient is here today for follow-up and to discuss lab results. Patient had normal lab results, her vitamin-D level in are normal now. Patient reports that she is feeling better. Able to move her bowels. She purchased probiotic and takes it daily. Takes famotidine twice a day. Feels like it is helping her quite a bit, however she continues to have occasional nausea and acid reflux depending on what she eats. Patient is avoiding eating greasy and fatty food. Tries to avoid eating fast food. She is no longer breast-feeding now. We held off on ordering PPI for her last visit as she still was breast-feeding. Patient denies dyspepsia, dysphagia or odynophagia. Denies melena, hematochezia, unintentional weight loss or ribbon like stools. Patient reports to be feeling better. [facility] Medical History Vitamin D deficiency Chronic constipation Essential hypertension History of pre-eclampsia Surgical History Hx of wisdom tooth extraction Family History Paternal Aunt Ovarian cancer Substance use disorder Mental health disorder Diabetes mellitus Brother High cholesterol Obesity Maternal Grandmother High cholesterol HTN (hypertension) Paternal Grandfather CVA (cerebral vascular accident) Mother Asthma Social History Household Members: Family Both parents involved: Yes Caregiver staying overnight: No Housing: Apartment Are you a primary manager respiratory care to a significant other at home: No Do you presently have visiting nurse or other home services: No 75 years or older and lives alone: No Alcohol intake: never Patient Tobacco Use Status: Never used Tobacco e-Cigarette/Vaping Use: Never Used Substance Use Type: Marijuana Agree to transfusion: Yes service: No Current occupational status: employed 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 Current occupational exposures/hazards: No Sexual orientation: Straight/Heterosexual Gender identity: Female Cognitive needs: No Hearing needs: No Vision needs: Yes Female Reproductive History Menstrual Age of Menarche: 12 Results Reviewed Results Reviewed: Laboratory Tests 04/01/24 10:32 Total Bilirubin 1.9 H Direct Bilirubin 0.5 Lipase 29 Vitamin B12 495 25-OH Vitamin D Total 65 Folate 11.1 Tiss Transglutamin IgG <1.0 Tiss Transglutamin IgA <1.0 Assessment & Plan Assessment & Plan (1) Chronic constipation: Code(s): K59.09 - Other constipation Category: Medical (2) Vitamin D deficiency: Code(s): E55.9 - Vitamin D deficiency, unspecified Category: Medical (3) GERD (gastroesophageal reflux disease): Code(s): K21.9 - Gastro-esophageal reflux disease without esophagitis Qualifiers: Esophagitis presence: esophagitis presence not specified Qualified Code(s): K21.9 - Gastro-esophageal reflux disease without esophagitis (4) Postprandial epigastric pain: Code(s): R10.13 - Epigastric pain Plan Long discussion with patient about avoiding dietary triggers and late night snacking. Avoid food that is spicy, greasy, fast food. Staying upright for minimum 3 hours after meals discussed with patient. Increase fluid intake and activity to promote better bowel motility. Patient does admit that her left lower quadrant pain is present usually when she is constipated. Patient can take senna on as-needed basis. Continue probiotics. Option of fiber with probiotics was discussed with patient as well. Patient can start taking omeprazole in the morning now that she is not breast-feeding anymore and famotidine at bedtime. Patient will follow-up in the office in 3 months, sooner on as needed basis. She is agreeable to this plan and verbalizes understanding of instructions. She was given the opportunity to ask questions and all questions answered. Thank you for allowing me to participate in her care Medications: New omeprazole 20 mg PO DAILY 30 caps 3RF K21.9 - Gastro-esophageal reflux disease without esophagitis Changed From famotidine (Pepcid) 20 mg PO BID 90 days 180 tabs 3RF K29.70 - Gastritis, unspecified, without bleeding To famotidine (Pepcid) 20 mg PO BEDTIME 90 days 90 tabs 3RF K29.70 - Gastritis, unspecified, without bleeding Coding Level of Care Code Est Pt Level 4 (47416) Complex EM visit Add On G2211 Diagnoses Chronic constipation K59.09 Vitamin D deficiency E55.9 Gastroesophageal reflux disease, unspecified whether esophagitis present K21.9 Esophagitis presence: esophagitis presence not specified Postprandial epigastric pain R10.13 Time Spent (min) 35 Comment 20 minutes spent with patient and additional 15 minutes spent reviewing her records
== END 2024-09-06 12:06 | disposition home or self-care (01) ==
PROVIDERS: PCP Internal Medicine; Visit Provider Nurse Practitioner Family
DX: K59.09 Other constipation (principal); E55.9 Vitamin D deficiency, unspecified; K21.9 Gastro-esophageal reflux disease without esophagitis; R10.13 Epigastric pain
CPT/HCPCS: 99214; G2211

== ENCOUNTER → 2024-09-06 11:39 | Outpatient (BNVA) | payer OTHER, SELFPAY | PROVIDERS: PCP Internal Medicine; Visit Provider Nurse Practitioner Family | DX: K59.09 Other constipation (principal); E55.9 Vitamin D deficiency, unspecified; K21.9 Gastro-esophageal reflux disease without esophagitis; R10.13 Epigastric pain | CPT/HCPCS: 99212 ==

== ENCOUNTER 2025-01-13 14:04 | Outpatient (AMB) | payer OTHER, SELFPAY ==
[2025-01-13 14:10] VITALS: BP 120/76; PULSE 86; O2SAT 98; BMI 23.5
--- NOTE | 2025-01-13 14:10 | MHC.PC.OV ---
Vital Signs 01/13/25 14:10 Height 5 ft 5 in Weight 141 lb 2 oz BMI 23.5 BP 120/76 Blood Pressure Location Rt brachial Position Sitting Pulse 86 Pulse Source Pulse Oximeter Pulse Oximetry (%) 98 Oxygen Delivery Method Room Air Intake Visit Reasons: PE Intake Note: Pt is here today for her annual physical. Last pap smear done at [facility] 06/22/2024 Is last menstrual period known: Yes Last menstrual period: 01/02/25 Allergies No Known Allergies Allergy (Verified 01/13/25 14:30) Medication List - Last Reconciled 01/13/25 by Tiff Shah MD famotidine (Pepcid) 20 mg PO BEDTIME 90 days ibuprofen mg PO omeprazole 20 mg PO DAILY Tobacco use date assessed: 01/13/25 Dental Screening Dental Screen Date: 01/13/25 Did you have a dental visit in the last 12 months?: Yes Did you have a dental problem in the last 6 months where you did not have access to dental care?: No Was dental information given to patient?: Patient has dentist HPI PE HPI Details 24-year-old lady with history of preeclampsia, chronic constipation now resolved, and heartburn symptoms,. here today for physical exam. [facility] and pelvic exam, with last Pap smear done 06/22/2024 with benign findings. She has been seen at [facility] for chronic constipation and heartburn, latter now improved with taking famotidine 20 mg at bedtime Goes of recurrent upper back pain and shoulder pain, which she believes is coming from her heavy pendulous breasts. Requesting a referral for evaluation for breast reduction surgery [facility] Medical History (Updated 01/17/25 @ 02:06 by Tiff Shah MD) Heartburn IBS (irritable bowel syndrome) Bilateral pendulous breasts Bilateral shoulder pain Upper back strain Vitamin D deficiency Chronic constipation Essential hypertension History of pre-eclampsia Surgical History Hx of wisdom tooth extraction Family History Paternal Aunt Ovarian cancer Substance use disorder Mental health disorder Diabetes mellitus Brother High cholesterol Obesity Maternal Grandmother High cholesterol HTN (hypertension) Paternal Grandfather CVA (cerebral vascular accident) Mother Asthma Social History Household Members: Family Both parents involved: Yes Caregiver staying overnight: No Housing: Apartment Are you a primary progressive care manager to a significant other at home: No Do you presently have visiting nurse or other home services: No 75 years or older and lives alone: No Alcohol intake: never Patient Tobacco Use Status: Never used Tobacco e-Cigarette/Vaping Use: Never Used Substance Use Type: Marijuana Agree to transfusion: Yes service: No Current occupational status: employed 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 1. Little interest or pleasure in doing things: not at all 2. Feeling down, depressed, or hopeless: not at all 3. Trouble falling or staying asleep, or sleeping too much: not at all 4. Feeling tired or having little energy: not at all 5. Poor appetite or overeating: not at all 6. Feeling bad about yourself - or that you are a failure or have let yourself or your family down: not at all 7. Trouble concentrating on things, such as reading the newspaper or watching television: not at all 8. Moving or speaking so slowly that other people could have noticed. Or the opposite - being so fidgety or restless that you have been moving around a lot more than usual: not at all 9. Thoughts that you would be better off or of hurting yourself in some way: not at all Total score: 0 Depression Screening Interpretation: Negative Depression Screening Done: Yes 72801 - PHQ-9 Billing: Yes Source: Developed by Drs. Ulysses Torres, Breanna Connors, Suresh Maurice and colleagues, with an educational francisca from [employer]. Thrive Questionnaire Date Thrive assessed: 01/13/25 I am a: Patient What is your living situation today?: I have a steady place to live Within the past 12 months, did the food you bought not last and you didn't have the money to get more?: I choose not to answer this question Within the past 12 months, did you worry whether your food would run out before you got money to buy more?: I choose not to answer this question Do you have trouble paying for medicines?: No Do you have trouble getting transportation to medical appointments?: No Do you have trouble paying your heating and electricity bill?: No Do you have trouble taking care of your child, family member or friend?: No Do you have trouble with day-to-day activities such as bathing, preparing meals, shopping, managing finances, etc.?: No Are you currently unemployed and looking for a job?: No Are you interested in more education?: No Please select the resources that you would like help with: None Currently or been in a relationship where the following occur: No concerns reported THRIVE Score: 0 AUDIT C Alcohol Use Questionnaire (AUDIT-C) 1. How often do you have a drink containing alcohol?: Monthly or less 2. How many drinks containing alcohol do you have on a typical day when you are drinking?: 1 or 2 3. How often do you have six or more drinks on one occasion?: Never Total Score: 1 Score Reviewed/Action Taken: Yes AMEYA-7 AMB Questionnaire AMEYA-7 Date AMEYA - 7 assessed: 01/13/25 Feeling nervous, anxious, or on edge: 1 = Several days Not being able to stop or control worryin = Not at all Worrying too much about different things: 2 = More than half the days Trouble relaxin = Several days Being so restless that it is hard to sit still: 0 = Not at all Becoming easily annoyed or irritable: 0 = Not at all Feeling afraid as if something awful might happen: 0 = Not at all Total AMEYA-7 score (0-4 normal; 5-9 mild; 10-14 moderate; 15-21 severe): 4 Source: Developed by Drs. Ulysses Torres, Breanna Connors, Suresh Maurice and colleagues, with an educational francisca from [employer] AMEYA-7 Assessment Billing AMEYA-7 Assessment Tool: AMEYA-7 Assessment 12384 Review of Systems Const Denies body aches, Denies fatigue, Denies headache(s) and Denies malaise Eyes Reports blurry vision (Myopia, goes to [facility]) ENT Reports no additional complaints and Denies headache(s) Card Reports no additional complaints Resp Reports no additional complaints GI Reports as per HPI Reports no additional complaints Musc Reports no additional complaints Skin/Breast Denies breast pain, Denies breast mass and Denies rash Neuro Reports no additional complaints and Denies headache(s) Psych Reports no additional complaints Endo Reports no additional complaints and Denies fatigue Justin/Lymph Reports no additional complaints Aller/Immun Reports no additional complaints Physical exam (Primary Care) Vital Signs: Last Vital Signs Pulse 86 01/13/25 14:10 BP 120/76 01/13/25 14:10 Pulse Ox 98 01/13/25 14:10 Oxygen Delivery Method Room Air 01/13/25 14:10 BMI result Body Mass Index 23.5 Tobacco/Smoking Status: Tobacco use Status Tobacco use date assessed 01/13/25 01/13/25 14:15 Patient Tobacco Use Status Never used Tobacco 01/13/25 14:12 e-Cigarette/Vaping Use Never Used 01/13/25 14:12 PHQ-9: PHQ-9 Score PHQ-9: Total score 0 01/13/25 14:30 Depression Screening Interpretation: Negative Thrive Assessment: Date of Thrive Assessment Date Thrive assessed 01/13/25 01/13/25 14:15 Currently or been in a relationship where the following occur: No concerns reported Const General: no acute distress and alert Orientation/consciousness: patient oriented x3 HENMT Head: Yes normocephalic Ears: external ears normal, TM's normal bilaterally and EAC's normal General nose exam: Normal external nose present Face and sinus: Yes face symmetric Mouth: Normal oral and palatal mucosa present, oropharynx normal and moist mucous membranes Eyes General: appearance normal, both eyes and all related structures Eyelids: Yes eyelids normal Conjunctivae: conjunctivae normal Sclerae: sclerae normal Pupils: Equal, round and reactive pupils present EOM: EOMs intact bilaterally Neck Neck: Yes full ROM, Yes no lymphadenopathy and Yes supple Thyroid: Thyroid normal Chest Other: Pendulous breasts bilateral Chest palpation & inspection: normal inspection of the chest and normal palpation of entire chest wall Breast/axilla palpation: normal palpation of the breasts Resp Effort & Inspection: normal respiratory effort and able to speak in complete sentences Auscultation: clear to auscultation bilaterally Cardio Rate: regular rate Rhythm: regular rhythm Heart sounds: S1 normal heart sound present and S2 normal heart sound present GI Palpation (GI): Soft to palpation, nontender, no guarding and no masses Auscultation: normal bowel sounds Other: Goes to with [facility] for her routine Pap and pelvic exam and IUD maintenance General: Yes no CVA tenderness Back/Spine/Pelvis Back: no CVA tenderness and back tenderness (Posterior neck and upper back radiating to both shoulders) Skin General skin exam: no rashes or lesions noted Neuro General: patient oriented x3, gait normal, moves all extremities, Normal light touch and pain sensation, no focal motor deficits and CN's II-XI intact bilaterally Cranial nerves: Yes Equal, round and reactive pupils present Cognition (Neuro): normal cognition Gait exam (Neuro): Normal gait present Motor exam (neuro): 5/5 motor strength present throughout Extrem General: Yes normal to inspection, Yes full ROM, Yes no joint enlargement, Yes no pedal edema and Yes normal gait Psych Appearance: grossly normal and well kempt Mental Status: mental status grossly normal Speech and movement: Normal speech and movement present Affect: normal affect Attitude: cooperative Thought process: Normal thought process present Thought content: Normal thought content present Coding Level of Care Code Est Pt Prev Care 18-39y([id number]) Diagnoses Annual visit for general adult medical examination with abnormal findings Z00. Upper back strain, initial encounter S29.012A Encounter type: initial encounter Bilateral shoulder pain M25.511; M25.512 Bilateral pendulous breasts N64.89 Heartburn R12 History of vitamin D deficiency Z86.39 Additional Codes AMEYA-7 Assessment Billing - AMEYA-7 Assessment Tool: AMEYA-7 Assessment 02176 ([id number]) PHQ-9 - 89062 - PHQ-9 Billing: Yes ([id number]) Assessment & Plan Assessment & Plan (1) Annual visit for general adult medical examination with abnormal findings: Code(s): Z00.01 - Encounter for general adult medical examination with abnormal findings Plan: Will check appropriate labs. Recommended dental visit every 6 months and regular eye exams, at least every 2 years. Take adequate calcium in diet and vitamin-D 3 at 2000 IU per cap once a day, in addition to weight-bearing exercises to help maintain good muscle tone and weight control. Instructed to do self-breast exam, and start getting yearly mammograms at age 42. Goes to [facility] for routine Pap and pelvic exam. Up-to-date with her childhood vaccination, Tdap, reminded to get her yearly flu shot. (2) Upper back strain: Code(s): S29.012A - Strain of muscle and tendon of back wall of thorax, initial encounter Category: Medical Qualifiers: Encounter type: initial encounter Qualified Code(s): S29.012A - Strain of muscle and tendon of back wall of thorax, initial encounter Plan: Referral to Dr. Ariana Bess for mammaplasty evaluation (3) Bilateral shoulder pain: Code(s): M25.511 - Pain in right shoulder; M25.512 - Pain in left shoulder Category: Medical Plan: Referred to Dr. Ariana Bess will possible mammaplasty (4) Bilateral pendulous breasts: Code(s): N64.89 - Other specified disorders of breast Category: Medical Plan: Referred to Dr. Ariana Bess for evaluation candidate for mammoplasty (5) Heartburn: Code(s): R12 - Heartburn Category: Medical Plan: Continue omeprazole 20 mg daily and may take an occasional famotidine 20 mg at bedtime if heartburn symptoms are more persistent. Discuss Avoidance of triggers for heartburn (6) History of vitamin D deficiency: Code(s): Z86.39 - Personal history of other endocrine, nutritional and metabolic disease Plan: Will check vitamin-D level Orders: Orders Lipid Panel 01/13/25 K58.9 - Irritable bowel syndrome, unspecified, R12 - Heartburn, Z86.39 - Personal history of other endocrine, nutritional and metabolic disease Alanine Aminotransferase 01/13/25 K58.9 - Irritable bowel syndrome, unspecified, R12 - Heartburn, Z86.39 - Personal history of other endocrine, nutritional and metabolic disease Aspartate Amino Transferase 01/13/25 K58.9 - Irritable bowel syndrome, unspecified, R12 - Heartburn, Z86.39 - Personal history of other endocrine, nutritional and metabolic disease Basic Metabolic Panel Fasting 01/13/25 K58.9 - Irritable bowel syndrome, unspecified, R12 - Heartburn, Z86.39 - Personal history of other endocrine, nutritional and metabolic disease Complete Blood Count Auto Diff 01/13/25 K58.9 - Irritable bowel syndrome, unspecified, R12 - Heartburn, Z86.39 - Personal history of other endocrine, nutritional and metabolic disease Vitamin D 25-OH Total 01/13/25 K58.9 - Irritable bowel syndrome, unspecified, R12 - Heartburn, Z86.39 - Personal history of other endocrine, nutritional and metabolic disease Referrals Breast Surgery Referral M25.511 - Pain in right shoulder, M25.512 - Pain in left shoulder, N64.89 - Other specified disorders of breast, S29.012A - Strain of muscle and tendon of back wall of thorax, initial encounter Medications: Refilled famotidine (Pepcid) 20 mg PO BEDTIME 90 days 90 tabs 3RF K29.70 - Gastritis, unspecified, without bleeding
== END 2025-01-13 14:48 | disposition home or self-care (01) ==
LOC: HO.HMCC 14:05
PROVIDERS: PCP Internal Medicine; Visit Provider Internal Medicine
DX: Z00.01 Encounter for general adult medical examination with abnormal findings (principal); S29.012A Strain of muscle and tendon of back wall of thorax, initial encounter; M25.511 Pain in right shoulder; M25.512 Pain in left shoulder; N64.89 Other specified disorders of breast; R12 Heartburn; Z86.39 Personal history of other endocrine, nutritional and metabolic disease

== ENCOUNTER → 2025-01-13 14:04 | Outpatient (BNVA) | payer OTHER, SELFPAY | PROVIDERS: PCP Internal Medicine; Visit Provider Internal Medicine | DX: Z00.01 Encounter for general adult medical examination with abnormal findings (principal); S29.012A Strain of muscle and tendon of back wall of thorax, initial encounter; M25.511 Pain in right shoulder; M25.512 Pain in left shoulder; N64.89 Other specified disorders of breast; R12 Heartburn; K58.9 Irritable bowel syndrome, unspecified; X58.XXXA Exposure to other specified factors, initial encounter; Y93.9 Activity, unspecified; Y92.9 Unspecified place or not applicable; Y99.9 Unspecified external cause status; Z86.39 Personal history of other endocrine, nutritional and metabolic disease | CPT/HCPCS: 96127; 99395 ==

== ENCOUNTER 2025-01-27 09:23 | Outpatient (REF) | payer OTHER, SELFPAY ==
[2025-01-27 13:11] LABS: MANUAL DIFF FLAG NO
[2025-01-27 13:35] LABS: Basophils Percent Auto 1.2 % (0-2); Eosinophils Absolute Auto 0.1 X10*3/uL (0.0-0.4); Eosinophils Percent Auto 4.2 % (0-4); Hematocrit 39.5 % (37.0-47.0); Hemoglobin 13.2 g/dl (12.0-16.0); Imm Gran Abs Auto 0.01 X10*3/uL (0.00-0.03); Imm Gran Pct Auto 0.3 % (0.0-0.4); Lymphocytes Absolute Auto 1.5 X10*3/uL (1.2-4.9); Lymphocytes Percent Auto 45.2 % (20-40); Mean Corpuscular HGB Conc 33.4 g/dl (31.0-35.0); Mean Corpuscular Hemoglobin 29.9 pg (27.0-33.0); Mean Corpuscular Volume 89.4 fL (80.0-98.0); Mean Platelet Volume 10.5 fL (9.4-12.3); Monocytes Absolute Auto 0.4 X10*3/uL (0.1-1.2); Monocytes Percent Auto 11.1 % (2-11); Neutrophils Absolute Auto 1.3 x10*3/uL (2.0-8.3); Platelet Count 349 X10*3/uL (160-400); Red Blood Count 4.42 X10*6/uL (4.20-5.50); Red Cell Distribution Width 11.9 % (11.0-16.0); White Blood Count 3.3 X10*3/uL (4.8-10.8)
[2025-01-27 13:51] LABS: Alanine Aminotransferase 12 U/L (0-31); Anion Gap 10 (12-20); Aspartate Amino Transferase 21 U/L (5-31); Blood Urea Nitrogen 8 mg/dL (9-16); Calcium 9.2 mg/dL (8.4-10.2); Carbon Dioxide 25 mmol/L (22-29); Chloride 110 mmol/L (96-108); Cholesterol 153 mg/dL (<200); Estimated Glomerular Filt Rate > 60; Glucose Fasting 81 mg/dL (60-99); HDL Cholesterol 44 mg/dL (>40); LDL Cholesterol Calculated 98 mg/dL (<100); Potassium 4.2 mmol/L (3.3-5.1); Sodium 141 mmol/L (135-145); Triglycerides 55 mg/dL (<150)
[2025-01-27 13:56] LABS: Vitamin D 25-OH Total 36.3 ng/mL (>30)
== END 2025-01-27 09:24 | disposition home or self-care (01) ==
LOC: HO.HMGCLDS 09:23
PROVIDERS: PCP Internal Medicine; Visit Provider Internal Medicine
DX: Z86.39 Personal history of other endocrine, nutritional and metabolic disease (principal); K58.9 Irritable bowel syndrome, unspecified; R12 Heartburn
CPT/HCPCS: 36415; 80048; 80061; 82306; 84450; 84460; 85025

== ENCOUNTER 2025-02-04 09:13 | Outpatient (REF) | payer OTHER, SELFPAY ==
--- NOTE | ~2025-02-04 | XR_ITS ---
EXAMINATION: XR TOES, RIGHT CLINICAL INFORMATION: S99.921A - Unspecified injury of right foot, initial encounter great toe injury. COMPARISON: None available. TECHNIQUE: 3 views of the right toes were obtained. FINDINGS: No fracture, dislocation, or suspicious bone lesion. Normal bone mineralization. Normal alignment. Joint spaces are preserved. No significant arthropathy. Soft tissues appear normal. XR/XR toe RT min 2V IMPRESSION: No acute bony or soft tissue abnormalities. Electronically signed by: Bolivar Mckeon MD 02/04/2025 11:10 AM EDT
== END 2025-02-04 09:14 | disposition home or self-care (01) ==
LOC: HO.HMGCX 09:13
PROVIDERS: PCP Internal Medicine; Visit Provider Nurse Practitioner Family
DX: S99.921A Unspecified injury of right foot, initial encounter (principal)
CPT/HCPCS: 73660; 99212

== ENCOUNTER 2025-02-04 09:13 | Outpatient (AMB) | payer OTHER, SELFPAY ==
[2025-02-04 10:06] VITALS: BP 100/60; PULSE 95; RESP 15; TEMP 36.8; O2SAT 99; BMI 23.3
--- NOTE | 2025-02-04 10:06 | MHC.OFFWIV ---
Intake Vital Signs 02/04/25 10:06 Height 5 ft 5 in Weight 140 lb BMI 23.3 BP 100/60 Blood Pressure Location Lt brachial Position Sitting Respiration 15 Pulse 95 Pulse Source Pulse Oximeter Temp 98.3 F Temp Source Oral Pulse Oximetry (%) 99 Oxygen Delivery Method Room Air Intake Visit Reasons: EP-rt big toe sprain Intake Note: Pt is here today c/o stumped Rt grt toe last this past Friday: went to [facility] urgent 01/30/25 no improvement still pain: no xray was taken at time of visit Patient Tobacco Use Status: Never used Tobacco Allergies No Known Allergies Allergy (Verified 02/04/25 10:11) HPI EP-rt big toe sprain HPI Details This is a 24-year-old female patient who presents to the walk-in clinic today with ongoing right great toe pain. She states that this past Friday, she tripped, and her right great toe got caught underneath her foot, and she felt a large pop, and has had pain/swelling there since then. On Friday, she went to a different urgent care, where they told her that this toe was sprained. They advised her to tape it to stabilize. No imaging taken. She returns today stating that pain has not resolved at all. She is having trouble walking. 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 [facility] Medical History Heartburn IBS (irritable bowel syndrome) Bilateral pendulous breasts Bilateral shoulder pain Upper back strain Vitamin D deficiency Chronic constipation Essential hypertension History of pre-eclampsia Surgical History Hx of wisdom tooth extraction Family History Paternal Aunt Ovarian cancer Substance use disorder Mental health disorder Diabetes mellitus Brother High cholesterol Obesity Maternal Grandmother High cholesterol HTN (hypertension) Paternal Grandfather CVA (cerebral vascular accident) Mother Asthma Social History Household Members: Family Both parents involved: Yes Caregiver staying overnight: No Housing: Apartment Are you a primary dog day care attendant to a significant other at home: No Do you presently have visiting nurse or other home services: No 75 years or older and lives alone: No Alcohol intake: never Patient Tobacco Use Status: Never used Tobacco e-Cigarette/Vaping Use: Never Used Substance Use Type: Marijuana Agree to transfusion: Yes service: No Current occupational status: employed 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 Current occupational exposures/hazards: No Sexual orientation: Straight/Heterosexual Gender identity: Female Cognitive needs: No Hearing needs: No Vision needs: Yes Female Reproductive History Menstrual Age of Menarche: 12 Review of Systems Const All systems reviewed & are unremarkable except as noted in HPI and below Physical Exam Vital Signs: Last Vital Signs Temp 98.3 F 02/04/25 10:06 Pulse 95 02/04/25 10:06 Resp 15 02/04/25 10:06 BP 100/60 02/04/25 10:06 Pulse Ox 99 02/04/25 10:06 Oxygen Delivery Method Room Air 02/04/25 10:06 BMI result Body Mass Index 23.3 Const General: cooperative, healthy appearing and no acute distress Resp Effort & Inspection: normal respiratory effort Skin General skin exam: no rashes or lesions noted Extrem Other: right great toe with some bruising at base of nail bed. Tenderness and mild erythema throughout great toe primarily at proximal phalanx of great toe, extending into distal metatarsal. Normal cap refill. No edema. Painful flexion of great toe. Patient able to bear weight, however this is painful. Psych Appearance: grossly normal Mental Status: mental status grossly normal Speech and movement: Normal speech and movement present Assessment & Plan Assessment & Plan (1) Injury of right great toe: Code(s): S99.921A - Unspecified injury of right foot, initial encounter Qualifiers: Encounter type: subsequent encounter Qualified Code(s): S99.921D - Unspecified injury of right foot, subsequent encounter Plan: XR obtained does not reveal acute fracture or dislocation. Patient fitted with and provided crutches and work note to permit for reduced standing. Advised NSAIDs and ice to area. May f/u with us or PCP as needed if symptoms change/worsen or do not improve with time and conservative measures. Patient verbalizes understanding and agrees to plan. Orders: Orders XR toe RT min 2V Today S99.921A - Unspecified injury of right foot, initial encounter Coding Level of Care Code Est Pt Level 4 (58526) Diagnoses Injury of right great toe, subsequent encounter S99.921D Encounter type: subsequent encounter
== END 2025-02-04 11:08 | disposition home or self-care (01) ==
PROVIDERS: PCP Internal Medicine; Visit Provider Nurse Practitioner Family
DX: S99.921D Unspecified injury of right foot, subsequent encounter (principal)

== ENCOUNTER → 2025-02-04 10:32 | Outpatient (BNV) | payer OTHER, SELFPAY | PROVIDERS: PCP Internal Medicine; Visit Provider Radiology Diagnostic Radiology | DX: S99.921A Unspecified injury of right foot, initial encounter (principal) | CPT/HCPCS: 73660 ==

== ENCOUNTER 2025-03-23 14:26 | Outpatient (AMB) | payer OTHER, SELFPAY ==
[2025-03-23 14:32] VITALS: BP 128/70; PULSE 81; TEMP 37; O2SAT 99; BMI 22.8
--- NOTE | 2025-03-23 14:32 | MHC.OFFWIV ---
Intake Vital Signs 03/23/25 14:32 Height 5 ft 5 in Weight 137 lb BMI 22.8 BP 128/70 Blood Pressure Location Rt brachial Position Sitting Pulse 81 Pulse Source Pulse Oximeter Temp 98.6 F Temp Source Oral Pulse Oximetry (%) 99 Oxygen Delivery Method Room Air Intake Visit Reasons: EP-red patches arms & legs Intake Note: Pt presents to the office today for c/o red patches on her arms and legs that appeared within the past 2 weeks. Pt states they do not itch. Patient Tobacco Use Status: Never used Tobacco Allergies No Known Allergies Allergy (Verified 03/23/25 14:35) HPI HPI Comments History of Present Illness Details History of Present Illness - The patient is a 24-year-old female presenting with 3 skin patches on her left arm. - The patient noticed a patch on her skin approximately a week and a half ago. - The patches are dry but not itchy, and she has not scratched them. - She has been applying some type of lotion (unsure of name) without any improvement. - The patches have not affected any other household members, including her daughter, partner, and sister. - The patient has not experienced any itching or irritation. Physical Exam General: Cooperative, healthy appearing, comfortable, no acute distress and well developed Orientation: Patient oriented x3 Limitations: No limitations Head: Normal to inspection Ears: Hearing grossly normal bilaterally Nose: Normal External nose present Face and sinus: Normal facial exam Eyes: Appearance normal, both eyes and all related structures Neck: Normal visual inspection and Yes full ROM Respiratory: Normal respiratory effort and able to speak in complete sentences. Skin: 3 small circular patches of dry skin with raised erythematous edges of left arm Neuro: Patient oriented x3 Extremities: Normal to inspection PFSH Medical History Heartburn IBS (irritable bowel syndrome) Bilateral pendulous breasts Bilateral shoulder pain Upper back strain Vitamin D deficiency Chronic constipation Essential hypertension History of pre-eclampsia Surgical History Hx of wisdom tooth extraction Family History Paternal Aunt Ovarian cancer Substance use disorder Mental health disorder Diabetes mellitus Brother High cholesterol Obesity Maternal Grandmother High cholesterol HTN (hypertension) Paternal Grandfather CVA (cerebral vascular accident) Mother Asthma Social History Household Members: Family Both parents involved: Yes Caregiver staying overnight: No Housing: Apartment Are you a primary respiratory care practitioner to a significant other at home: No Do you presently have visiting nurse or other home services: No 75 years or older and lives alone: No Alcohol intake: never Patient Tobacco Use Status: Never used Tobacco e-Cigarette/Vaping Use: Never Used Substance Use Type: Marijuana Agree to transfusion: Yes service: No Current occupational status: employed 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 Current occupational exposures/hazards: No Sexual orientation: Straight/Heterosexual Gender identity: Female Cognitive needs: No Hearing needs: No Vision needs: Yes Female Reproductive History Menstrual Age of Menarche: 12 Review of Systems Const All systems reviewed & are unremarkable except as noted in HPI and below Physical Exam Vital Signs: Last Vital Signs Temp 98.6 F 03/23/25 14:32 Pulse 81 03/23/25 14:32 BP 128/70 03/23/25 14:32 Pulse Ox 99 03/23/25 14:32 Oxygen Delivery Method Room Air 03/23/25 14:32 BMI result Body Mass Index 22.8 Assessment & Plan Assessment & Plan (1) Nummular eczema: Code(s): L30.0 - Nummular dermatitis Plan: Plan - Prescribe a mid-grade topical steroid cream to be applied twice daily for 7 to 10 days. - Advise follow-up if the condition does not improve after 10 days of treatment. - Consider referral to dermatology if the rash persists or changes. Patient was informed and verbally consented to the use of an ambient scribe for clinic note documentation during this visit. Medications: New triamcinolone acetonide 0.1% 1 appl topical BID 30 grams 0RF Coding Level of Care Code Est Pt Level 3 (53134) Diagnoses Nummular eczema L30.0
== END 2025-03-23 14:52 | disposition home or self-care (01) ==
PROVIDERS: PCP Internal Medicine; Visit Provider Physician Assistant
DX: L30.0 Nummular dermatitis (principal)

== ENCOUNTER → 2025-03-23 14:26 | Outpatient (BNVA) | payer OTHER, SELFPAY | PROVIDERS: PCP Internal Medicine; Visit Provider Physician Assistant | DX: L30.0 Nummular dermatitis (principal) | CPT/HCPCS: 99212 ==